=== PATIENT | male | born 1950 | race Caucasian/White ===

== ENCOUNTER 2018-05-03 16:53 | Inpatient (IN) | payer MEDICARE ==
[~2018-05-03] VITALS: Ht 172.7 cm; Wt 90.7 kg
--- NOTE | 2018-05-03 21:15 | NUR ---
GPS-RN ADMITTED A 67-Y/O MALE BROUGHT IN BY AMBULANCE DIRECT ADMIT FROM [facility]. ON 5150 HOLD FOR DTS. PER HOLD PATIENT CONTINUES TO MAKE STATEMENTS OF "I WANT TO KILL MYSELF" HIS PLAN A FEW DAYS AGO WAS TO JUMP OUT A WINDOW STATING " I HAVE NO REASON TO LIVE". UPON FACE TO FACE ASSESSMENT, PATIENT APPEARS TO BE ALERT, ORIENTED X 3, COOPERATIVE, WITH DEPRESSED MOOD. DENIES ANY SI/HI/AVH AT THIS TIME. ABLE TO AMBULATE WITH ASSISTANCE. NO ACUTE DISTRESS NOTED. NO C/O PAIN OR DISCOMFORT AT THIS TIME. BELONGINGS INVENTORIED AND CHECKED FOR CONTRABAND. REVIEWED PATIENT'S RIGHTS AND HE VERBALIZED UNDERSTANDING. PATIENT IS UNDER THE PSYCHIATRIC CARE OF DR. ARREDONDO, ORDERS OBTAINED, AND UNDER THE MEDICAL CARE OF MILLIE LEMON, NOTIFIED OF ADMISSION AND MED RECON DONE. SKIN AND BODY ASSESSMENT DONE. MRSA SCREENING DONE. BED LOCKED AND PLACED IN LOWEST POSITION. ROOM SAFETY CHECKED. FALL PRECAUTIONS MAINTAINED. WILL CONTINUE TO MONITOR [id number] ROUNDS FOR SAFETY.
[2018-05-03] MEDS ORDERED: ACETAMINOPHEN 325 MG TABLET PO PRN (22:00)
[2018-05-03] MEDS ORDERED: clonazePAM 0.5 MG TABLET PO PRN (22:00)
[2018-05-03] MEDS ORDERED: MAGNESIUM HYDROXIDE 30 ML UDC PO PRN (22:00)
[2018-05-03] MEDS ORDERED: MAG HYDROX/AL HYDROX/SIMETH 30 ML UDC PO PRN (22:00)
[2018-05-03] MEDS ORDERED: BISA-79 PO (23:22)
[2018-05-03] MEDS ORDERED: POTA10TA15 PO (23:22)
[2018-05-03] MEDS ORDERED: IRON100V2 IV (23:22)
[2018-05-03] MEDS ORDERED: ASCO500T9 PO (23:22)
[2018-05-03] MEDS ORDERED: FURO80TA85 PO (23:22)
[2018-05-03] MEDS ORDERED: FERR325T23 PO (23:22)
[2018-05-03] MEDS ORDERED: PANT40TA2 PO (23:22)
[2018-05-04] MEDS ORDERED: BISACODYL (5 MG) 5 MG TABLET.DR PO SCH
--- NOTE | 2018-05-04 00:30 | NUR ---
GPS-RN PATIENT WAS SEEN AND EXAMINED BY MILLIE LEMON WITH ORDER DVT STAT NOTED AND CARRIED OUT.
[2018-05-04] MEDS ORDERED: HALO100A2 IM ×2 (06:13)
--- NOTE | 2018-05-04 06:30 | NUR ---
GPS-RN ULTRASOUND EXAM OF THR LEFT UPPER EXTREMITY VEINS WITH DOPPLER RESULT NEGATIVE. WILL ENDORSE TO DAY SHIFT NURSE TO INFORM MD.
[2018-05-04 07:00] LABS: ALBUMIN 2.8 g/dL (3.4-5.0); BILIRUBIN,TOTAL 0.7 mg/dL (0.2-1.0); CALCIUM, SERUM 8.8 mg/dL (8.5-10.1); POTASSIUM 4.1 mmol/L (3.5-5.1); TOTAL PROTEIN, SERUM 6.3 g/dL (6.4-8.2)
[2018-05-04 07:05] LABS: CHOLESTEROL 66 mg/dL (<200); HDL CHOLESTEROL 26 mg/dL (40-60); LDL 38 mg/dL (0-99); TRIGLYCERIDES 39 mg/dL (30-150)
[2018-05-04 08:00] VITALS: BP 136/82
[2018-05-04] MEDS: FERROUS SULFATE (325 MG) 325 MG/TAB TABLET PO SCH ×2 (09:08→16:35)
[2018-05-04] MEDS: POTASSIUM CHLORIDE 10 MEQ TABLET.SA PO SCH (09:08)
[2018-05-04] MEDS: FUROSEMIDE 40 MG TABLET PO SCH (09:08)
[2018-05-04] MEDS: PANTOPRAZOLE 40 MG TABLET.DR PO SCH ×2 (09:08→16:35)
--- NOTE | 2018-05-04 13:51 | NUR ---
WOUND CARE CONSULT WOUND CARE RECEIVED CONSULT FOR LEFT AND RIGHT FOOT NECROTIC. WOUND CARE WILL DEFER CONSULT AND ALL TREATMENT PLANS TO DPM AT THIS TIME. PATIENT WITH JACQUELIN AT 20, WILL SEE PRN.
--- NOTE | 2018-05-04 14:30 | NUR ---
GPS/RN PER DR MORRISON, BILATERAL FEET DISCOLORATION IS DUE TO DEBRIS FROM POOR HYGIENE.
--- NOTE | 2018-05-04 15:00 | NUR ---
GPS/RN PATIENT REFUSING SHOWER AND REFUSING TO ALLOW STAFF TO SCRUB FEET. WILL CONTINUE TO ENCOURAGE TO FOLLOW MD REGIMEN AND ALLOW STAFF PROVIDE CARE.
[2018-05-04 16:02] VITALS: BP 144/82
--- NOTE | 2018-05-04 19:18 | NUR ---
GPS/RN PATIENT REPORT SHAVING A HEADACHE, ADMINISTERED TYLENOL 650 MG PER PT REQUEST, WILL CONTINUE TO MONITOR.
--- NOTE | 2018-05-04 19:30 | NUR ---
GPS RN NOTE, RECEIVED PATIENT AWAKE AND IN BED, NO S/S OR COMPLAINTS OF PAIN AT THIS TIME. PATIENT DISPLAYING NO S/S OF APPARENT DISTRESS AT THIS TIME. PATIENT BREATHING IS UNLABORED WITH EQUAL RISE AND FALL OF THE CHEST. PATIENT ALERT AND ORIENTED X 3 WITH A SPO2 97%. PATIENT IS COMPLIANT WITH MEDS , DISORGANIZED, DEPRESSED, ISOLATIVE, COOPERATIVE, NEEDS REORIENTATION. PATIENT DENIES SUICIDE IDEATIONS AND HOMICIDAL IDEATIONS AT THIS TIME. PATIENT ASSISTED WITH TURNING AND REPOSITIONING Q2HR AND PRN FOR COMFORT AND CIRCULATION. PATIENT HAS NO NEEDS AT THIS TIME. PATIENT EDUCATED ON THE USE OF THE CALL SAINZ. PATIENT BED SIDE RAILS UP X2 FOR SAFETY, BED IS LOCKED AND LOW WILL CONTINUE TO MONITOR AND MAINTAIN AND MAINTAIN SAFETY.
[2018-05-04 20:00] VITALS: BP 145/77
[2018-05-04] MEDS: CEPHALEXIN MONOHYDRATE 500 MG CAPSULE PO SCH (21:30)
[2018-05-04] MEDS: BENZTROPINE MESYLATE (1 MG) 1 MG TABLET PO SCH (21:30)
[2018-05-04] MEDS: HALOPERIDOL 5 MG TABLET PO SCH (21:30)
[2018-05-05] MEDS: CEPHALEXIN MONOHYDRATE 500 MG CAPSULE PO SCH ×3 (04:41→20:57)
[2018-05-05 08:00] VITALS: BP 147/85
[2018-05-05] MEDS: FERROUS SULFATE (325 MG) 325 MG/TAB TABLET PO SCH ×2 (08:47→16:05)
[2018-05-05] MEDS: PANTOPRAZOLE 40 MG TABLET.DR PO SCH ×2 (08:47→16:05)
[2018-05-05] MEDS: FUROSEMIDE 40 MG TABLET PO SCH (08:47)
[2018-05-05] MEDS: ASCORBIC ACID 500 MG TABLET PO SCH (08:47)
[2018-05-05] MEDS: POTASSIUM CHLORIDE 10 MEQ TABLET.SA PO SCH (08:47)
--- NOTE | 2018-05-05 09:58 | NUR ---
INITIAL DISCHARGE PLAN: Pt will be discharged home to [facility] [address] [facility] [address] . HI spoke with [facility] and care rep who confirmed pt is a resident. HI will help form a safe and proper discharge in collaboration with .
[2018-05-05 16:23] VITALS: BP 134/95
[2018-05-05 20:00] VITALS: BP_SYST 102; BP_SYST 143; BP_DIAS 59; BP_DIAS 79
[2018-05-05] MEDS: BENZTROPINE MESYLATE (1 MG) 1 MG TABLET PO SCH (21:07)
[2018-05-05] MEDS: HALOPERIDOL 5 MG TABLET PO SCH (21:08)
[2018-05-06] MEDS: CEPHALEXIN MONOHYDRATE 500 MG CAPSULE PO SCH ×3 (06:29→21:40)
[2018-05-06 08:00] VITALS: BP 125/94
[2018-05-06] MEDS: FERROUS SULFATE (325 MG) 325 MG/TAB TABLET PO SCH ×2 (08:38→17:24)
[2018-05-06] MEDS: FUROSEMIDE 40 MG TABLET PO SCH (08:39)
[2018-05-06] MEDS: POTASSIUM CHLORIDE 10 MEQ TABLET.SA PO SCH (08:39)
[2018-05-06] MEDS: PANTOPRAZOLE 40 MG TABLET.DR PO SCH ×2 (08:39→17:24)
[2018-05-06 16:00] VITALS: BP 130/62
[2018-05-06 20:00] VITALS: BP 120/66
[2018-05-06] MEDS: BENZTROPINE MESYLATE (1 MG) 1 MG TABLET PO SCH (21:40)
[2018-05-06] MEDS: HALOPERIDOL 5 MG TABLET PO SCH (21:40)
[2018-05-06] MEDS: TEMAZEPAM 7.5 MG CAPSULE PO PRN (21:41)
[2018-05-07] MEDS: CEPHALEXIN MONOHYDRATE 500 MG CAPSULE PO SCH ×3 (05:29→21:18)
[2018-05-07 08:00] VITALS: BP 107/58
[2018-05-07] MEDS: ASCORBIC ACID 500 MG TABLET PO SCH (09:47)
[2018-05-07] MEDS: POTASSIUM CHLORIDE 10 MEQ TABLET.SA PO SCH (09:47)
[2018-05-07] MEDS: FUROSEMIDE 40 MG TABLET PO SCH (09:47)
[2018-05-07] MEDS: PANTOPRAZOLE 40 MG TABLET.DR PO SCH ×2 (09:47→17:47)
[2018-05-07] MEDS: FERROUS SULFATE (325 MG) 325 MG/TAB TABLET PO SCH ×2 (09:49→17:47)
[2018-05-07] MEDS: IBUPROFEN 600 MG TABLET PO PRN (12:39)
--- NOTE | 2018-05-07 12:40 | NUR ---
RN NOTES ADMINISTERED IBUPROFEN 600 MG PO PRN FOR LOWER BACK PAIN 04/30 PRESCRIBED, PER PATIENT REQUEST. CONTINUED MONITORING.
[2018-05-07 15:35] VITALS: BP 126/76
[2018-05-07 19:59] VITALS: BP 129/74
[2018-05-07] MEDS: HALOPERIDOL 5 MG TABLET PO SCH (21:18)
[2018-05-07] MEDS: BENZTROPINE MESYLATE (1 MG) 1 MG TABLET PO SCH (21:18)
[2018-05-08] MEDS: CEPHALEXIN MONOHYDRATE 500 MG CAPSULE PO SCH ×3 (04:33→21:11)
[2018-05-08 08:00] VITALS: BP 126/69
[2018-05-08] MEDS: FUROSEMIDE 40 MG TABLET PO SCH (08:05)
[2018-05-08] MEDS: FERROUS SULFATE (325 MG) 325 MG/TAB TABLET PO SCH ×2 (08:05→16:00)
[2018-05-08] MEDS: POTASSIUM CHLORIDE 10 MEQ TABLET.SA PO SCH (08:05)
[2018-05-08] MEDS: PANTOPRAZOLE 40 MG TABLET.DR PO SCH ×2 (08:05→16:00)
[2018-05-08 16:00] VITALS: BP 144/70
[2018-05-08 20:12] VITALS: BP 128/74
[2018-05-08] MEDS: BENZTROPINE MESYLATE (1 MG) 1 MG TABLET PO SCH (21:11)
[2018-05-08] MEDS: HALOPERIDOL 5 MG TABLET PO SCH (21:11)
[2018-05-08] MEDS: IBUPROFEN 600 MG TABLET PO PRN (21:31)
[2018-05-09] MEDS: CEPHALEXIN MONOHYDRATE 500 MG CAPSULE PO SCH ×3 (06:09→21:04)
[2018-05-09 07:58] VITALS: BP 143/86
[2018-05-09] MEDS: PANTOPRAZOLE 40 MG TABLET.DR PO SCH ×2 (08:21→16:34)
[2018-05-09] MEDS: FERROUS SULFATE (325 MG) 325 MG/TAB TABLET PO SCH ×2 (08:21→16:34)
[2018-05-09] MEDS: FUROSEMIDE 40 MG TABLET PO SCH (08:22)
[2018-05-09] MEDS: POTASSIUM CHLORIDE 10 MEQ TABLET.SA PO SCH (08:22)
[2018-05-09] MEDS: ASCORBIC ACID 500 MG TABLET PO SCH (08:22)
[2018-05-09] MEDS: IBUPROFEN 600 MG TABLET PO PRN (12:59)
[2018-05-09 16:20] VITALS: BP 135/72
[2018-05-09 20:17] VITALS: BP 138/75
[2018-05-09] MEDS: BENZTROPINE MESYLATE (1 MG) 1 MG TABLET PO SCH (21:04)
[2018-05-09] MEDS: HALOPERIDOL 5 MG TABLET PO SCH (21:04)
[2018-05-10] MEDS: CEPHALEXIN MONOHYDRATE 500 MG CAPSULE PO SCH ×3 (05:08→21:03)
[2018-05-10] MEDS: IBUPROFEN 600 MG TABLET PO PRN ×3 (05:10→22:13)
--- NOTE | 2018-05-10 05:10 | NUR ---
GPS-RN PATIENT C/O LOWER BACK PAIN ON A PAIN SCALE OF 3/10 AND REQUESTED FOR MOTRIN. ADMINISTERED MOTRIN 650MG PO ORDERED. WILL CONTINUE TO MONITOR.
[2018-05-10 08:11] VITALS: BP 119/80
[2018-05-10] MEDS: FERROUS SULFATE (325 MG) 325 MG/TAB TABLET PO SCH ×2 (08:57→16:39)
[2018-05-10] MEDS: PANTOPRAZOLE 40 MG TABLET.DR PO SCH ×2 (08:57→16:39)
[2018-05-10] MEDS: POTASSIUM CHLORIDE 10 MEQ TABLET.SA PO SCH (08:57)
[2018-05-10] MEDS: FUROSEMIDE 40 MG TABLET PO SCH (08:57)
[2018-05-10 15:34] VITALS: BP 128/75
[2018-05-10 20:38] VITALS: BP 148/88
[2018-05-10] MEDS: HALOPERIDOL 5 MG TABLET PO SCH (21:03)
[2018-05-10] MEDS: BENZTROPINE MESYLATE (1 MG) 1 MG TABLET PO SCH (21:03)
--- NOTE | 2018-05-10 22:15 | NUR ---
GPS-RN PATIENT C/O LOWER BACK PAIN ON A PAIN SCALE OF 3/10 AND REQUESTED FOR MOTRIN. ADMINISTERED MOTRIN 650MG PO ORDERED. WILL CONTINUE TO MONITOR.
[2018-05-11] MEDS: CEPHALEXIN MONOHYDRATE 500 MG CAPSULE PO SCH ×3 (05:29→21:48)
[2018-05-11] MEDS: IBUPROFEN 600 MG TABLET PO PRN (06:22)
[2018-05-11 07:49] VITALS: BP 126/74
[2018-05-11] MEDS: PANTOPRAZOLE 40 MG TABLET.DR PO SCH ×2 (08:07→16:15)
[2018-05-11] MEDS: POTASSIUM CHLORIDE 10 MEQ TABLET.SA PO SCH (08:07)
[2018-05-11] MEDS: FUROSEMIDE 40 MG TABLET PO SCH (08:07)
[2018-05-11] MEDS: FERROUS SULFATE (325 MG) 325 MG/TAB TABLET PO SCH ×2 (08:07→16:15)
[2018-05-11] MEDS: ASCORBIC ACID 500 MG TABLET PO SCH (08:07)
--- NOTE | 2018-05-11 10:34 | NUR ---
HI contacted pts sister, Parisa Rapp at to arrange for pts transportation as he will be discharging tomorrow, however was unable to leave a message; phone # is pager. HI will contact [email or web address] for pt contact info. for discharge planning purposes.
--- NOTE | 2018-05-11 10:54 | NUR ---
HI contacted [facility] and spoke to Андрей for pt contact info. for discharge planning purposes. HI was left on hold for extended period of time with no response. HI will follow up.
[2018-05-11 16:00] VITALS: BP 126/71
[2018-05-11 20:00] VITALS: BP 134/86
[2018-05-11] MEDS: TEMAZEPAM 7.5 MG CAPSULE PO PRN (21:48)
[2018-05-11] MEDS: HALOPERIDOL 5 MG TABLET PO SCH (21:48)
[2018-05-11] MEDS: BENZTROPINE MESYLATE (1 MG) 1 MG TABLET PO SCH (21:48)
[2018-05-12 08:07] VITALS: BP 127/73
[2018-05-12] MEDS: PANTOPRAZOLE 40 MG TABLET.DR PO SCH (08:53)
[2018-05-12] MEDS: FUROSEMIDE 40 MG TABLET PO SCH (08:53)
[2018-05-12] MEDS: FERROUS SULFATE (325 MG) 325 MG/TAB TABLET PO SCH (08:53)
[2018-05-12] MEDS: CEPHALEXIN MONOHYDRATE 500 MG CAPSULE PO SCH (08:53)
[2018-05-12] MEDS: POTASSIUM CHLORIDE 10 MEQ TABLET.SA PO SCH (08:54)
--- NOTE | 2018-05-12 15:00 | NUR ---
GPS/RN PT D/C TO [facility] VIA PRIVATE TRANSPORTATION ARRANGED BY FACILITY. NO SI OR HI AT THE TIME OF D/C. EXIT CARE INSTRUCTIONS, MEDS LIST GIVEN AND UNDERSTOOD. PICTURES TAKEN, PROPERTY RETURNED, ID BAND REMOVED.
--- NOTE | 2018-05-12 18:25 | NUR ---
Discharge Plan: Patient will discharge to [facility], [address] [facility] [address]; via [employer] at 3:00 pm. Pt has been notified and is in agreement. Psychiatrist: Dr. Ady Da Silva, [address], [facility] [id number]; . Pt reported that he did not have an internsit and was provided with the following referral: Dr. Robb Phillip, [facility]; [address] [place] [address]; . SW attempted to contact pts sister, Parisa Rapp, to notify of pts discharge plan however was unable to leave a message as # is a pager. SW informed Андрей, staff data base administrator who was in agreement with pts discharge.
[2018-05-13] MEDS ORDERED: PANTOPRAZOLE 40 MG TABLET.DR PO SCH (09:00)
== END 2018-05-12 15:00 | disposition home or self-care (01) | DRG 885 ==
LOC: GPS 20:57
PROVIDERS: ADMIT Psychiatry & Neurology Psychiatry; ATTEND Hospitalist
DX: F20.0 Paranoid schizophrenia (principal); R45.851 Suicidal ideations; E44.0 Moderate protein-calorie malnutrition; L03.114 Cellulitis of left upper limb; F29 Unspecified psychosis not due to a substance or known physiological condition; F32.9 Major depressive disorder, single episode, unspecified; I10 Essential (primary) hypertension; K21.9 Gastro-esophageal reflux disease without esophagitis; G89.29 Other chronic pain; L60.3 Nail dystrophy; R23.4 Changes in skin texture; E88.09 Other disorders of plasma-protein metabolism, not elsewhere classified; Z68.30 Body mass index [BMI] 30.0-30.9, adult; L98.8 Other specified disorders of the skin and subcutaneous tissue; I80.8 Phlebitis and thrombophlebitis of other sites
CPT/HCPCS: 36415; 80053-TC; 80061-TC; 87081-TC; 93971-TC; A4606; Z7610